=== PATIENT | male | born 1990 | race Caucasian/White ===

== ENCOUNTER 2018-10-08 03:49 | Inpatient (IN) | payer MEDICAID ==
[~2018-10-08] VITALS: Ht 167.6 cm; Wt 49.9 kg
[2018-10-08 03:51] VITALS: BP_SYST 122
[2018-10-08] MEDS ORDERED: NACL 0.9% 1,000 ML IV ONE ×2 (04:00→05:45)
[2018-10-08] MEDS ORDERED: MORPHINE 4 MG/ML INJ. SYRINGE IVP ONE (04:00)
[2018-10-08] MEDS ORDERED: ONDANSETRON HCL 4 MG/2 ML VIAL IVP ONE (04:00)
[2018-10-08 05:16] LABS: BASOPHILS % (AUTO) 0.4 % (0.0-2.0); EOSINOPHILS # (AUTO) 0.3 K/uL (0.0-0.4); EOSINOPHILS % (AUTO) 3.1 % (0.0-4.0); HEMATOCRIT 38.2 % (36-54); HEMOGLOBIN 12.6 g/dL (14.0-18.0); LYMPHOCYTES # (AUTO) 1.8 K/uL (1.0-5.5); LYMPHOCYTES % (AUTO) 21.2 % (20.5-51.5); MEAN CORPUSCULAR HEMOGLOBIN 31 pg (27-31); MEAN CORPUSCULAR HGB CONC 33 % (32-36); MEAN CORPUSCULAR VOLUME 94 fL (79.0-98.0); MONOCYTES # (AUTO) 0.8 K/uL (0.0-1.0); MONOCYTES % (AUTO) 8.8 % (1.7-9.3); NEUTROPHILS # (AUTO) 5.7 K/uL (1.8-7.7); NEUTROPHILS % (AUTO) 66.5 % (40.0-70.0); PLATELET COUNT (AUTO) 385 K/uL (130-430); RED BLOOD CELL COUNT(AUTO) 4.07 MIL/uL (4.2-6.2); RED CELL DISTRIBUTION WIDTH 11.4 % (9.0-15.0); WHITE BLOOD COUNT (AUTO) 8.6 K/uL (4.8-10.8)
[2018-10-08 05:21] LABS: CALCIUM 9.2 mg/dL (8.4-11.0); CREATININE 0.39 mg/dL (0.55-1.30); POTASSIUM 3.8 mmol/L (3.5-5.1)
[2018-10-08 05:26] LABS: ALBUMIN 3.9 g/dL (3.4-4.8); TOTAL BILIRUBIN 0.3 mg/dL (0.0-1.0)
[2018-10-08 07:12] LABS: BILIRUBIN,URINE NEGATIVE (NEGATIVE); BLOOD, URINE NEGATIVE (NEGATIVE); CLARITY/URINE CLEAR (CLEAR); COLOR,URINE YELLOW (YELLOW); GLUCOSE,URINE 1+ (NEGATIVE); KETONES,URINE NEGATIVE (NEGATIVE); LEUKOCYTE ESTERASE ,URINE NEGATIVE (NEGATIVE); NITRITE, URINE NEGATIVE (NEGATIVE); PH,URINE 5.5 (5.0-8.0); PROTEIN URINE NEGATIVE (NEGATIVE); UROBILINOGEN,URINE 0.2 (0.2-1.0)
[2018-10-08 07:31] LABS: BACTERIA,URINE RARE /HPF (None Seen); MUCUS,URINE None Seen /LPF (None Seen); RBC,URINE 0-3 /HPF (0-3); WBC,URINE 0-3 /HPF (0-3)
[2018-10-08 08:41] VITALS: BP_SYST 147
[2018-10-08] MEDS: NACL 0.9% 1,000 ML IV SCH ×3 (08:51→21:05)
[2018-10-08] MEDS ORDERED: GLU500 PO (08:55)
[2018-10-08] MEDS ORDERED: HYDR-4274 PO (08:55)
[2018-10-08] MEDS ORDERED: HYDROcodone/ACETAMIN 5-325 MG TAB (NORCO/ VICODIN) PO PRN (10:15)
[2018-10-08] MEDS ORDERED: ACETAMINOPHEN 325 MG TABLET PO PRN (10:15)
[2018-10-08] MEDS: HYDROcodone/ACETAMIN 10-325 MG TAB PO PRN ×3 (10:40→18:33)
[2018-10-08 11:37] VITALS: BP_SYST 124
[2018-10-08] MEDS ORDERED: CHOLECALCIFEROL (VITAMIN D3) 2,000 UNIT TABLET PO ONE (14:15)
[2018-10-08] MEDS ORDERED: MULTIVITS,CA,MINERALS/IRON/FA 1 TABLET PO ONE (14:15)
[2018-10-08] MEDS ORDERED: MAGNESIUM OXIDE 400 MG TABLET PO ONE (14:15)
[2018-10-08 16:03] VITALS: BP_SYST 132
[2018-10-08] MEDS: metFORMIN HCL 500 MG TABLET PO SCH (17:03)
[2018-10-08 19:00] VITALS: BP_SYST 142
[2018-10-08 20:00] VITALS: BP_SYST 142
[2018-10-08] MEDS ORDERED: ONDANSETRON HCL 4 MG/2 ML VIAL IVP PRN (20:45)
[2018-10-08] MEDS: MAGNESIUM OXIDE 400 MG TABLET PO SCH (21:05)
[2018-10-08] MEDS: DIPHENHYDRAMINE INJ 50 MG/ML VIAL IVP PRN (21:07)
[2018-10-08] MEDS: INSULIN REGULAR, HUMAN 100 UNITS/ML, 10 ML VIAL (novoLIN R) SUBCUT PRN (21:15)
[2018-10-09] VITALS: BP_SYST 135
[2018-10-09] MEDS: HYDROcodone/ACETAMIN 10-325 MG TAB PO PRN ×5 (04:15→21:12)
[2018-10-09] MEDS: DIPHENHYDRAMINE INJ 50 MG/ML VIAL IVP PRN ×3 (06:32→18:29)
[2018-10-09 07:09] LABS: BASOPHILS % (AUTO) 0.3 % (0.0-2.0); EOSINOPHILS % (AUTO) 0.3 % (0.0-4.0); HEMOGLOBIN 11.9 g/dL (14.0-18.0); LYMPHOCYTES # (AUTO) 0.9 K/uL (1.0-5.5); LYMPHOCYTES % (AUTO) 9.5 % (20.5-51.5); MEAN CORPUSCULAR HEMOGLOBIN 32 pg (27-31); MEAN CORPUSCULAR HGB CONC 35 % (32-36); MEAN CORPUSCULAR VOLUME 93 fL (79.0-98.0); MONOCYTES # (AUTO) 0.8 K/uL (0.0-1.0); MONOCYTES % (AUTO) 8.4 % (1.7-9.3); NEUTROPHILS # (AUTO) 7.6 K/uL (1.8-7.7); NEUTROPHILS % (AUTO) 81.5 % (40.0-70.0); PLATELET COUNT (AUTO) 374 K/uL (130-430); RED BLOOD CELL COUNT(AUTO) 3.68 MIL/uL (4.2-6.2); RED CELL DISTRIBUTION WIDTH 11.1 % (9.0-15.0); WHITE BLOOD COUNT (AUTO) 9.3 K/uL (4.8-10.8)
[2018-10-09 08:00] VITALS: BP_SYST 115
[2018-10-09 08:17] LABS: CALCIUM 8.8 mg/dL (8.4-11.0); CREATININE 0.31 mg/dL (0.55-1.30); FREE T4 (FREE THYROXINE) 0.9 ng/dL (0.6-1.6); POTASSIUM 3.5 mmol/L (3.5-5.1); THYROID STIMULATING HORMONE 2.19 uIu/mL (0.34-4.82)
[2018-10-09] MEDS: metFORMIN HCL 500 MG TABLET PO SCH ×2 (08:53→17:14)
[2018-10-09] MEDS: CHOLECALCIFEROL (VITAMIN D3) 2,000 UNIT TABLET PO SCH (08:55)
[2018-10-09] MEDS: MAGNESIUM OXIDE 400 MG TABLET PO SCH ×2 (08:55→20:47)
[2018-10-09] MEDS: MULTIVITS,CA,MINERALS/IRON/FA 1 TABLET PO SCH (08:55)
[2018-10-09] MEDS: NACL 0.9% 1,000 ML IV SCH ×2 (09:52→20:47)
[2018-10-09] MEDS: INSULIN REGULAR, HUMAN 100 UNITS/ML, 10 ML VIAL (novoLIN R) SUBCUT PRN ×2 (11:41→20:56)
[2018-10-09 12:45] VITALS: BP_SYST 122
[2018-10-09 17:18] VITALS: BP_SYST 130
[2018-10-09] MEDS ORDERED: GABAPENTIN 300 MG CAPSULE PO ONE (17:45)
[2018-10-09 20:00] VITALS: BP_SYST 155
[2018-10-09] MEDS: GABAPENTIN 300 MG CAPSULE PO SCH (20:47)
[2018-10-10] VITALS: BP_SYST 136
[2018-10-10] MEDS: DIPHENHYDRAMINE INJ 50 MG/ML VIAL IVP PRN ×3 (01:11→15:37)
[2018-10-10] MEDS: HYDROcodone/ACETAMIN 10-325 MG TAB PO PRN ×3 (02:47→12:07)
[2018-10-10] MEDS: NACL 0.9% 1,000 ML IV SCH (06:56)
[2018-10-10 07:25] LABS: CALCIUM 8.8 mg/dL (8.4-11.0); CREATININE 0.44 mg/dL (0.55-1.30); POTASSIUM 3.9 mmol/L (3.5-5.1)
[2018-10-10 07:37] LABS: BASOPHILS % (AUTO) 0.3 % (0.0-2.0); EOSINOPHILS # (AUTO) 0.1 K/uL (0.0-0.4); EOSINOPHILS % (AUTO) 0.6 % (0.0-4.0); HEMATOCRIT 33.7 % (36-54); HEMOGLOBIN 11.4 g/dL (14.0-18.0); LYMPHOCYTES # (AUTO) 1.3 K/uL (1.0-5.5); MEAN CORPUSCULAR HEMOGLOBIN 32 pg (27-31); MEAN CORPUSCULAR HGB CONC 34 % (32-36); MEAN CORPUSCULAR VOLUME 93 fL (79.0-98.0); MONOCYTES % (AUTO) 8.9 % (1.7-9.3); NEUTROPHILS # (AUTO) 8.4 K/uL (1.8-7.7); NEUTROPHILS % (AUTO) 78.2 % (40.0-70.0); PLATELET COUNT (AUTO) 357 K/uL (130-430); RED CELL DISTRIBUTION WIDTH 11.7 % (9.0-15.0); WHITE BLOOD COUNT (AUTO) 10.8 K/uL (4.8-10.8)
[2018-10-10 08:00] VITALS: BP_SYST 127
[2018-10-10] MEDS: MUPIROCIN NASAL 2% OINT. NS SCH ×2 (09:00→09:04)
[2018-10-10] MEDS: CHOLECALCIFEROL (VITAMIN D3) 2,000 UNIT TABLET PO SCH (09:03)
[2018-10-10] MEDS: GABAPENTIN 300 MG CAPSULE PO SCH ×2 (09:03→14:39)
[2018-10-10] MEDS: metFORMIN HCL 500 MG TABLET PO SCH ×2 (09:03→16:58)
[2018-10-10] MEDS: MAGNESIUM OXIDE 400 MG TABLET PO SCH (09:03)
[2018-10-10] MEDS: MULTIVITS,CA,MINERALS/IRON/FA 1 TABLET PO SCH (09:10)
[2018-10-10 12:00] VITALS: BP_SYST 125
[2018-10-10] MEDS ORDERED: SODIUM CHLORIDE 500 MG TABLET PO SCH (15:00)
[2018-10-10 15:42] VITALS: BP_SYST 148
[2018-10-10] MEDS ORDERED: traMADol HCL HCL 50 MG TABLET (ULTRAM) PO PRN ×2 (15:45)
[2018-10-10 16:01] VITALS: BP_SYST 120
== END 2018-10-10 17:55 | disposition home or self-care (01) | DRG 426 ==
LOC: SED 03:49 → STU 07:13 → SMU 10-09 23:36
PROVIDERS: ADMIT Internal Medicine; ATTEND Internal Medicine
DX: E87.1 Hypo-osmolality and hyponatremia (principal); D64.9 Anemia, unspecified; G89.29 Other chronic pain; E11.9 Type 2 diabetes mellitus without complications; Z59.0 Homelessness
CPT/HCPCS: 36415; 80048; 80053; 81000-TC; 82962; 83690-TC; 83735-TC; 84439; 84443-TC; 85025; 87081; 90656; 96361; 96374; 96375; 99285; G0378; J1200; J1815; J2270; J2405; J7030